=== PATIENT | female | born 1975 | race Caucasian/White ===

== ENCOUNTER 2018-05-04 18:44 | Emergency (ER) ==
[2018-05-04 19:04] VITALS: BP 124/87; TEMP 98.8; BMI 41.0
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
== END 2018-05-04 20:11 | disposition home or self-care (01) ==
LOC: ED 18:44
DX: M54.42 Lumbago with sciatica, left side (principal); S89.92XA Unspecified injury of left lower leg, initial encounter; V89.2XXA Person injured in unspecified motor-vehicle accident, traffic, initial encounter
CPT/HCPCS: 36415; 85379; 99282